=== PATIENT | female | born 1965 | race Caucasian/White ===

== ENCOUNTER 2021-12-20 15:32 | Emergency (ER) | payer BC ==
--- OUTSIDE RECORDS SUMMARY | 2021-12-20 15:48 | XMS REPORT | Continuity of Care Document ---
:1965 Author Organization [facility] t Address [address] [place] [address] Dr. Nur [address] [place] [id number] Care Team Providers Name Role Phone Unavailable Unavailable Unavailable Problems This patient has no known problems. Allergies, Adverse Reactions, Alerts This patient has no known allergies or adverse reactions. Medications This patient has no known medications. Procedures This patient has no known procedures. Results Test Description Test Time Test Comments Results Result [facility] e Comments SCR MAMM BILATERAL 2021-12-05 NIKKIE CAD DIGITAL 08:22:16 Name: Veena : 1965 Sex: F - SCR MAMM BILATERAL NIKKIE CAD DIGITALBILATERAL DIGITAL SCREENING MAMMOGRAM 3D/2D WITH CAD: 11/15/2021LINICAL: Asymptomatic. Digital breast tomosynthesis was performed in addition to routine CC and MLO views. Current mammographic images were evaluated by Digital Reef ImageAPX Grouper CAD (computer-aided detection) software. No prior exams were available for comparison. There are scattered fibroglandular tissues in both breasts. There is a benign appearing density in both breasts. No suspicious mass, architectural distortion, malignant type calcification, or lymph node abnormality detected. IMPRESSION: BENIGNThere is no mammographic evidence of malignancy. Resume annual screening mammography in one year. Anabel matute/castillo:12/05/2021 08:22:16 Dialysis Biomed Technician: Shakila Canseco MM, [facility] sent: BIRADS 1-2 Normal Mammogram BI-RADS: 2 Benign
[2021-12-20 16:32] LABS: Absolute Lymphocytes (CBC) 1.6 K/uL (0.7-4.9); Hematocrit 39.5 % (36.0-45.0); Lymphocytes % 23.6 % (15.3-44.8); MPV 9.4 fL (7.6-11.3); RBC Red Blood Cell Count 4.26 M/uL (3.86-4.86)
[2021-12-20 16:33] LABS: Protime INR 1.08
[2021-12-20 16:48] LABS: ALT/SGPT 18 U/L (12-78); AST/SGOT 12 U/L (15-37); Albumin 3.4 g/dL (3.4-5.0); BUN Blood Urea Nitrogen 16 mg/dL (7-18); Bicarbonate 28 mmol/L (21-32); Bilirubin Direct < 0.1 mg/dL (0-0.2); Glucose Level 94 mg/dL (74-106); Magnesium 1.9 mg/dL (1.8-2.4); Potassium 3.8 mmol/L (3.5-5.1); Sodium Level 139 mmol/L (136-145)
[2021-12-20 16:55] LABS: Alkaline Phosphatase 68 U/L (45-117); Bilirubin Total 0.3 mg/dL (0.2-1.0); NT PRO-BNP 554 pg/mL (<125); Protein, Total 7.3 g/dL (6.4-8.2)
--- NOTE | 2021-12-20 17:47 | RAD REPORT ---
EXAM DESCRIPTION: CTHead angio12/20/2021 5:21 pm CLINICAL HISTORY: Headache COMPARISON: None TECHNIQUE: CT angiogram of the head was obtained. 3D MIPS reconstruction performed. All CT scans are performed using dose optimization technique as appropriate and may include automated exposure control or mA/KV adjustment according to patient size. FINDINGS: The basilar, internal carotid, anterior cerebral, middle cerebral and posterior cerebral a rteries are normal caliber. An aneurysm is not seen. The vein of Vasiliy is ectatic measuring 5 millimeters in width A significant stenosis is not noted. IMPRESSION: Unremarkable CT arteriogram head. Ectatic vein of Vasiliy
--- NOTE | 2021-12-20 17:50 | RAD REPORT ---
EXAM DESCRIPTION: CT - Head Brain Wo Cont - 12/20/2021 5:21 pm CLINICAL HISTORY: Headache COMPARISON: None. TECHNIQUE: Computed axial tomography of the head was obtained. IV contrast was not requested. All CT scans are performed using dose optimization technique as appropriate and may include automated exposure control or mA/KV adjustment according to patient size. FINDINGS: An intracranial bleed is not seen . The ventricles are normal in caliber. No extra-axial fluid collection is noted. Empty sella turcica Fluid within the sinuses/ mastoids is not seen. IMPRESSION: No acute intracranial abnormality is seen. If patient's symptoms persist MRI of the bra in would be recommended.
--- NOTE | 2021-12-20 18:55 | RAD REPORT ---
EXAM DESCRIPTION: USExtremity Venous Uni Ltd12/20/2021 6:40 pm CLINICAL HISTORY: Right leg pain COMPARISON: None. FINDINGS: Right common femoral, superficial femoral, popliteal and right posterior tibial veins are compressible and demonstrate augmentation. Doppler demonstrates good flow. The right popliteal venous thrombosis appears resolved Grayscale, color and spectral analysis performed on all vessels IMPRESSION: No evidence of deep venous thrombosis involving the right lower extremity.
--- NOTE | 2021-12-20 19:04 | RAD REPORT ---
EXAM DESCRIPTION: US - Lower Extremity Artery Uni Ltd - 12/20/2021 6:40 pm CLINICAL HISTORY: Leg pain COMPARISON: None FINDINGS: The right common femoral, superficial femoral, popliteal and dorsalis pedis arteries demonstrate trip hasic waveforms The right posterior tibial artery demonstrate monophasic waveform Grayscale, color and spectral analysis performed on all vessels IMPRESSION: Mild distal lower extremity arterial disease
--- NOTE | 2021-12-20 19:07 | ER ---
Nurse's Notes [facility] Name: Hina Lo Age: 56 yrs Sex: Female : 1965 Arrival Date: 12/20/2021 Time: 15:35 Bed 16 Private MD: Diagnosis: Essential (primary) hypertension;Headache Presentation: 12/20 15:56 Chief complaint: Patient states: she was at the dr. office when her blood pressure read ap3 210/119 and she was informed by the office to come be evaluated here. Patient reports having a left sided headache at this time. Coronavirus screen: At this time, the client does not indicate any symptoms associated with coronavirus-19. Ebola Screen: No symptoms or risks identified at this time. Initial Sepsis Screen:. Initial Sepsis Screen: Does the patient meet any 2 criteria? No. Patient's initial sepsis screen is negative. Does the patient have a suspected source of infection? No. Patient's initial sepsis screen is negative. Risk Assessment: Do you want to hurt yourself or someone else? Patient reports no desire to harm self or others. Onset of symptoms was December 20, 2021. 15:56 Method Of Arrival: Ambulatory ap3 15:56 Acuity: ROSI 2 ap3 Triage Assessment: 16:02 General: Appears in no apparent distress. Behavior is calm, cooperative, appropriate ap3 for age. Pain: Complains of pain in left side of head. Neuro: Level of Consciousness is awake, alert, obeys commands, Oriented to person, place, time, situation, Appropriate for age Speech is normal. Cardiovascular: Patient's skin is warm and dry. Respiratory: Airway is patent Respiratory effort is even, unlabored, Respiratory pattern is regular, symmetrical. 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 Pneumococcal vaccine is up to date, Flu vaccine is up to date. - Social history:: Smoking status: Patient denies any tobacco usage or history of. Screenin:03 Abuse screen: Denies threats or abuse. Nutritional screening: No deficits noted. ap3 Tuberculosis screening: No symptoms or risk factors identified. 16:47 Fall Risk None identified. ww Assessment: 16:47 General: Appears in no apparent distress. Behavior is calm, cooperative. Pain: ww Complains of pain in forehead. Neuro: Level of Consciousness is awake, alert, obeys commands, Oriented to person, place, time, situation, Gait is steady, Speech is normal, Reports headache. Cardiovascular: Capillary refill < 3 seconds Patient's skin is warm and dry. Respiratory: Airway is patent Respiratory effort is even, unlabored, Respiratory pattern is regular, symmetrical. GI: No signs and/or symptoms were reported involving the gastrointestinal system. : No signs and/or symptoms were reported regarding the genitourinary system. Derm: No signs and/or symptoms reported regarding the dermatologic system. Skin is intact, is healthy with good turgor. Musculoskeletal: No signs and/or symptoms reported regarding the musculoskeletal system. 17:54 Reassessment: Patient appears in no apparent distress at this time. No changes from ww previously documented assessment. Patient and/or family updated on plan of care and expected duration. Pain level reassessed. Patient is alert, oriented x 3, equal unlabored respirations, skin warm/dry/pink. 18:33 Reassessment: Patient appears in no apparent distress at this time. No changes from ww previously documented assessment. Patient and/or family updated on plan of care and expected duration. Pain level reassessed. Patient is alert, oriented x 3, equal unlabored respirations, skin warm/dry/pink. assisted to bathroom. 19:10 Reassessment: No changes from previously documented assessment. The pt has been dc'd joanna home and the provider has just spoken with her about her appt tomorrow. The pt remains in NAD. . Vital Signs: 15:56 BP 191 / 101; Pulse 68; Resp 17; Temp 98.2; Pulse Ox 99% ; Weight 151.05 kg; Height 5 ap3 ft. 11 in. (180.34 cm); 16:47 BP 152 / 67; Pulse 65; Resp 18; Pulse Ox 97% on R/A; ww 17:15 BP 153 / 75; Pulse 55; Resp 16; Pulse Ox 96% on R/A; ww 18:47 BP 177 / 74; Pulse 54; Resp 18; Pulse Ox 98% on R/A; ww 19:11 BP 158 / 80; Pulse 58; Resp 16; Pulse Ox 98% on R/A; joanna 15:56 Body Mass Index 46.44 (151.05 kg, 180.34 cm) ap3 ED Course: 15:35 Patient arrived in ED. ds1 15:58 Triage completed. ap3 16:03 Arm band placed on right wrist. ap3 16:05 Sherri Faith FNP-C is [facility]. kb 16:05 Brian Lazaro MD is Attending Physician. kb 16:24 Kelle Hagen, RN is Primary Nurse. ww 16:42 Basic Metabolic Panel Sent. ww 16:42 CBC with Diff Sent. ww 16:47 Patient has correct armband on for positive identification. Placed in gown. Bed in low ww position. Call light in reach. Side rails up X 1. diagrammer and seamer on. Pulse ox on. NIBP on. 17:21 CT Head Brain wo Cont In Process Unspecified. EDMS 17:21 CT Head Angio In Process Unspecified. EDMS 18:40 Extremity Venous Uni Ltd In Process Unspecified. EDMS 18:40 US Lower Extremity Artery Uni Ltd In Process Unspecified. EDMS 19:03 Primary Nurse role handed off by Kelle Hagen RN mw2 19:10 Tierra Ware, RN is Primary Nurse. joanna 19:11 No provider procedures requiring assistance completed. joanna Administered Medications: No medications were administered Outcome: 19:06 Discharge ordered by . kb 19:11 Condition: stable joanna 19:47 Patient left the ED. joanna Signatures: Dispatcher [employer] EDMS Sherri Faith FNP-C FNP-Ckb Sanford, Demi ds1 Selma Bran, RN RN ap3 Indra Heart mw2 Tierra Ware RN RN bo Wood, Whitney, YOVANI jaquez
--- NOTE | 2021-12-20 19:07 | EDPHYS ---
Physician Documentation [facility] Name: Hina Lo Age: 56 yrs Sex: Female : 1965 Arrival Date: 12/20/2021 Time: 15:35 Bed 16 Private MD: ED Physician Brian Lazaro HPI: 12/20 16:16 This 56 yrs old Female presents to ER via Ambulatory with complaints of HTN, headache. kb 16:16 The patient has elevated blood pressure and discovered this at a physician's office, ami and sent to the emergency department for evaluation. Onset: The symptoms/episode began/occurred today. Associated signs and symptoms: Pertinent positives: headache, Pertinent negatives: chest pain, dizziness, dyspnea, lightheadedness, nausea, visual changes, vomiting, weakness. Severity of symptoms: At its worst the blood pressure was moderate, in the emergency department the blood pressure is unchanged. The patient has experienced similar episodes in the past. The patient has been recently seen by a physician:. Pt states she went to her appt with her pain management dr and was sent here because her BP was high. States she is on 4 different hypertensive medications already. Reports headache on left side of head. States she has had a blood clot in right leg since August that causes pain.. 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 Pneumococcal vaccine is up to date, Flu vaccine is up to date. - Social history:: Smoking status: Patient denies any tobacco usage or history of. ROS: 16:15 Constitutional: Negative for fever, chills, and weight loss. kb 16:15 MS/extremity: Positive for pain, of the right leg. 16:15 Neuro: Positive for headache, Negative for dizziness. 16:15 All other systems are negative. Exam: 16:15 Constitutional: This is a well developed, well nourished patient who is awake, alert, kb and in no acute distress. Head/Face: Normocephalic, atraumatic. ENT: Moist Mucous membranes Cardiovascular: Regular rate and rhythm with a normal S1 and S2. No gallops, murmurs, or rubs. No pulse deficits. Respiratory: Respirations even and unlabored. No increased work of breathing. Talking in full sentences Skin: Warm, dry with normal turgor. Normal color. MS/ Extremity: Pulses equal, no cyanosis. Neurovascular intact. Full, normal range of motion. Neuro: Awake and alert, GCS 15, oriented to person, place, time, and situation. Moves all extremities. Normal gait. Psych: Awake, alert, with orientation to person, place and time. Behavior, mood, and affect are within normal limits. Vital Signs: 15:56 BP 191 / 101; Pulse 68; Resp 17; Temp 98.2; Pulse Ox 99% ; Weight 151.05 kg; Height 5 ap3 ft. 11 in. (180.34 cm); 16:47 BP 152 / 67; Pulse 65; Resp 18; Pulse Ox 97% on R/A; ww 17:15 BP 153 / 75; Pulse 55; Resp 16; Pulse Ox 96% on R/A; ww 18:47 BP 177 / 74; Pulse 54; Resp 18; Pulse Ox 98% on R/A; ww 19:11 BP 158 / 80; Pulse 58; Resp 16; Pulse Ox 98% on R/A; joanna 15:56 Body Mass Index 46.44 (151.05 kg, 180.34 cm) ap3 MDM: 16:06 Patient medically screened. kb 16:14 Data reviewed: vital signs, nurses notes. Data interpreted: Pulse oximetry: on room air kb is 99 %. Interpretation: normal. 19:06 Counseling: I had a detailed discussion with the patient and/or guardian regarding: the kb historical points, exam findings, and any diagnostic results supporting the discharge/admit diagnosis, lab results, radiology results, the need for outpatient follow up, a family practitioner, to return to the emergency department if symptoms worsen or persist or if there are any questions or concerns that arise at home. 12/20 16:14 Order name: Basic Metabolic Panel kb 12/20 16:14 Order name: CBC with Diff kb 12/20 16:14 Order name: LFT's; Complete Time: 16:58 kb 12/20 16:14 Order name: Magnesium; Complete Time: 16:58 kb 12/20 16:14 Order name: NT PRO-BNP; Complete Time: 16:58 kb 12/20 16:14 Order name: PT-INR; Complete Time: 16:40 kb 12/20 16:14 Order name: Troponin HS; Complete Time: 16:58 kb 12/20 16:14 Order name: CT Head Brain wo Cont; Complete Time: 17:54 kb 12/20 16:14 Order name: CT Head Angio; Complete Time: 17:54 kb 12/20 16:14 Order name: Basic Metabolic Panel; Complete Time: 16:58 EDMS 12/20 16:14 Order name: CBC with Automated Diff; Complete Time: 16:40 EDMS 12/20 17:43 Order name: US Extremity Venous Unilateral Ltd kb 12/20 17:43 Order name: US Lower Extremity Artery Uni Ltd; Complete Time: 19:05 kb 12/20 17:43 Order name: Extremity Venous Uni Ltd; Complete Time: 18:58 EDMS 12/20 16:14 Order name: EKG; Complete Time: 16:14 kb 12/20 16:14 Order name: Cardiac monitoring; Complete Time: 16:42 kb 12/20 16:14 Order name: EKG - Nurse/Tech; Complete Time: 16:42 kb 12/20 16:14 Order name: IV Saline Lock; Complete Time: 16:42 kb 12/20 16:14 Order name: Labs collected and sent; Complete Time: 16:42 kb 12/20 16:14 Order name: O2 Per Protocol; Complete Time: 16:42 kb 12/20 16:14 Order name: O2 Sat Monitoring; Complete Time: 16:42 kb Administered Medications: No medications were administered Disposition Summary: 12/20/21 19:06 Discharge Ordered Location: Home kb Condition: Stable kb Diagnosis - Essential (primary) hypertension kb - Headache kb Followup: kb - With: Emergency Department - When: As needed - Reason: Worsening of condition Followup: kb - With: Private Physician - When: 2 - 3 days - Reason: Recheck today's complaints, Continuance of care, Re-evaluation by your physician Discharge Instructions: - Discharge Summary Sheet kb - Hypertension, Adult, [id number] kb - Managing Your Hypertension kb Forms: - Medication Reconciliation Form kb - Thank You Letter kb - Antibiotic Education kb - Prescription Opioid Use kb Signatures: Dispatcher [employer]Host Sherri Moe, CLOTH LAMINATING SUPERVISOR-C Selma Teresa RN RN ap3 Corrections: (The following items were deleted from the chart) 16:18 16:16 This 56 yrs old Female presents to ER via Ambulatory with complaints of kb Dizziness. kb
[2021-12-20 20:47] VITALS: O2SAT 98
[2021-12-20 20:48] VITALS: BP 158/80
[2021-12-20 20:56] VITALS: TEMP 98.2
--- NOTE | 2021-12-21 11:15 | EKG ---
Test Date: 2021-12-20 Test Time: 16:08:26 Perfume Maker: ALP MEASUREMENT RESULTS: Intervals: Rate: 64 KS: 212 QRSD: 92 QT: 396 QTc: 408 [place]: P: 65 KS: 212 QRS: 56 T: 48 INTERPRETIVE STATEMENTS: Sinus rhythm with sinus arrhythmia with 1st degree AV block Otherwise normal ECG Compared to ECG 09/09/2020 12:30:57 First degree AV block now present Electronically Signed On 12-21-21 11:13:45 CLERICAL RECEPTIONIST by Royer Chong
== END 2021-12-20 19:47 | disposition home or self-care (01) ==
LOC: ER 15:32
DX: I10 Essential (primary) hypertension (principal); Z79.01 Long term (current) use of anticoagulants
CPT/HCPCS: 93005; 85025; 80048; 36415; 83735; 85610; 80076; 84484; 83880; 70450; 70496; 93926; 93971; 99284; Q9967

== ENCOUNTER 2022-02-22 09:11 | Emergency (ER) | payer BC ==
--- OUTSIDE RECORDS SUMMARY | 2022-02-22 09:13 | XMS REPORT | Continuity of Care Document ---
:1965 Author Organization [facility] t Address [address] [place] [address] Dr. Wh[address] [place] [address] Care Team Providers Name Role Phone Beckie Flores Attending Clinician Unavailable Beckie Flores Admitting Clinician Unavailable Payers Payer Name Policy Type Policy Number Effective Date Expiration Date S ource Problems This patient has no known problems. Allergies, Adverse Reactions, Alerts Allergy Allergy Status Severity Reaction(s) Onset Inactive Treating Comm ents Source Name Type Date Date Clinician No Known DA Active U [facility] Allergie 12-29 [facility] 00:00: [facility] [place] 00 [employer] [facility] Medications This patient has no known medications. Procedures Procedure Date / Time Performed Performing Clinician [facility] e [id number] 2021-12-29 00:00:00 [email or web address] [facility] [id number] 2021-12-29 00:00:00 [email or web address] [facility] Encounters Start End Encounter Admission Attending Care Care Encounter Source Date/Time Date/Time Type Type Clinicians Facility Department ID 2021-12-29 2021-12-30 Inpatient [facility] MEDI.01 [id number] [facility] 05:18:00 11:48:00 [place] [id number] [facility] 2021-12-29 2021-12-30 Inpatient [facility] MEDI.01 [id number] [facility] 05:18:00 11:48:00 Wyatt Olivia [facility] [place] Results Test Description Test Time Test Comments Results Result Comments Source BASIC METABOLIC PANEL 2021-12-29 07:31:00 Test Item Value Reference Range Interpretation Comme nts SODIUM (test code = NA) 141 mmol/L 136-145 N Plea se note: New Reference Range Dec 2020 POTASSIUM (test code = K) 4.6 mmol/L 3.5-5.1 N CHLORIDE (test code = CL) 108 mmol/L 98-[address] ease note: New Reference Range Dec 2020 CARBON DIOXIDE (test code 27 mmol/L 20-[address] Pl ease note: New Reference = CO2) Range Dec 2020 GLUCOSE (test code = GLU) 95 mg/dL 74-[address] ease note: New Reference Range Dec 2020 BLOOD UREA NITROGEN (test 16 mg/dL 9-[address] ease note: New Reference code = BUN) Range Dec 2020 GLOMERULAR FILTRATION >=60 max estimate >60 U nits are mL/min/1.73m2 RATE (test code = GFR) mL/min The e stimated glomerular filtration rate is computed usingp atient race, age (>18) , sex, and serum creatinin e. If anyof the needed data elements are missing the Laboratory cannot compute an estimation of t he glomerular filt ration rate. CREATININE (test code = 0.90 mg/dL 0.55-1.02 N Plea se note: New Reference CREAT) Range Dec 2020 CALCIUM (test code = CA) 8.6 mg/dL 8.7-10.4 L Ple ase note: New Reference Range Dec 2020 CBC W/AUTO [id number] 07:00:00 Test Item Value Reference Range Interpretation Comments WHITE BLOOD CELL (test code = 7.0 x10 3/uL 4.8-10.8 N WBC) RED BLOOD CELL (test code = 3.83 x10 6/uL 4.20-5.40 L RBC) HEMOGLOBIN (test code = HGB) 11.7 g/dL 12.0-16.0 L HEMATOCRIT (test code = HCT) 36.3 % 37.0-47.0 L MEAN CELL VOLUME (test code = 94.8 fL 81.0-99.0 N MCV) MEAN CELL HGB (test code = MCH) 30.5 pg 27-31 N MEAN CELL HGB CONCENTRATION 32.2 G/DL 33-36.5 L (test code = MCHC) RED CELL DISTRIBUTION WIDTH 13.6 % 12.9-16.9 N (test code = RDW) PLATELET COUNT (test code = 204 x10 3/uL 150-440 N PLT) MEAN PLATELET VOLUME (test code 11.1 fL 8.9-12.4 N = MPV) NEUTROPHIL % (test code = NT%) 57.5 % 42.2-75.2 N LYMPHOCYTE % (test code = LY%) 28.5 % 20.5-51.1 N MONOCYTE % (test code = MO%) 10.3 % 1.7-9.3 H EOSINOPHIL % (test code = EO%) 2.4 % 0.0-7.0 N BASOPHIL % (test code = BA%) 0.7 % 0-2.5 N NEUTROPHIL # (test code = NT#) 4.03 x10 3/uL 1.80-7.70 N LYMPHOCYTE # (test code = LY#) 2.00 x10 3/uL 1.00-4.80 N MONOCYTE # (test code = MO#) 0.72 x10 3/uL 0.00-0.80 N EOSINOPHIL # (test code = EO#) 0.17 x10 3/uL 0.00-0.45 N BASOPHIL # (test code = BA#) 0.05 x10 3/uL 0.0-0.20 N SCR MAMM BILATERAL NIKKIE CAD [id number] 08:22:16 Name: Veena : 1965 Sex: F - SCR MAMM BILATERAL NIKKIE CAD DIGITALBILATERAL DIGITAL SCREENING MAMMOGRAM 3D/2D WITH CAD: 11/15/2021LINICAL: Asymptomatic. Digital breast tomosynthesis was performed in addition to routine CC and MLO views. Current mammographicimages were evaluated by vIPtela CAD (computer-aided detection) software. No prior exams were available for comparison. There are scattered fibroglandular tissues in both breasts. Thereis a benign appearing density in both breasts. No suspicious mass, architectural distortion, malignant type calcification, or lymph node abnormality detected. IMPRESSION: BENIGNThere is no mammographic evidence of malignancy. Resume annual screening mammography in one year. Anabel matute/penrad:12/05/2021 08:22:16 Marine Superintendent: Shakila Canseco MM, [facility] sent: BIRADS 1-2 Normal Mammogram BI-RADS: 2 Benign
[2022-02-22] MEDS ORDERED: NA CHLORIDE 0.9% 500 ML ONE (10:30)
--- NOTE | 2022-02-22 10:47 | RAD REPORT ---
EXAM DESCRIPTION: US - Extrem Venous W Compress Agusto - 02/22/2022 10:30 am CLINICAL HISTORY: Pain COMPARISON: Extremity Venous Uni Ltd dated 12/20/2021 TECHNIQUE: Real-time sonographic evaluation of the lower extremity deep venous systems was performed using color Doppler, grayscale, and compression. FINDINGS: Bilateral lower extremities. Normal compressibility, flow augmentation, phasic flow and spontaneous flow is identified in both the left and right lower extremity deep venous systems. No intraluminal filling defects seen. IMPRESSION: No DVT in either lower extremity.
[2022-02-22 11:00] LABS: Absolute Lymphocytes (CBC) 1.4 K/uL (0.7-4.9); Hematocrit 38.3 % (36.0-45.0); Lymphocytes % 19.2 % (15.3-44.8); MPV 10.7 fL (7.6-11.3); RBC Red Blood Cell Count 4.12 M/uL (3.86-4.86)
[2022-02-22 11:01] LABS: Protime INR 1.08
[2022-02-22] MEDS ORDERED: ASPIRIN EC 81 MG TAB PO ONE (11:05)
[2022-02-22 11:15] LABS: Albumin 3.7 g/dL (3.4-5.0); Bilirubin Direct 0.1 mg/dL (0-0.2); Bilirubin Total 0.4 mg/dL (0.2-1.0); Magnesium 1.8 mg/dL (1.8-2.4); Potassium 3.6 mmol/L (3.5-5.1); Protein, Total 7.7 g/dL (6.4-8.2); Troponin High Sensitivity 4.5 pg/mL (<58.9)
--- NOTE | 2022-02-22 11:19 | EDPHYS ---
Physician Documentation [facility] Name: Hina Lo Age: 57 yrs Sex: Female : 1965 Arrival Date: 02/22/2022 Time: 09:12 Bed 4 Private MD: Victor Hugo [facility] ED Physician Tigre Laws HPI: 02/22 10:52 This 57 yrs old Female presents to ER via Ambulatory with complaints of Leg katheryn Swelling, Leg Pain - right. 10:52 The patient presents with pain, that is acute. The complaints affect the lateral aspect katheryn of right thigh, lateral aspect of right calf, right hamstring, right calf, medial aspect of right thigh, right quadriceps and right jackson. Context: The problem was sustained at an unknown site. Onset: The symptoms/episode began/occurred 2 day(s) ago. Modifying factors: The symptoms are alleviated by nothing. the symptoms are aggravated by nothing. Associated signs and symptoms: The patient has no apparent associated signs or symptoms. Treatment prior to arrival includes: no previous treatment. The patient has experienced similar episodes in the past, a few times. 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 - Social history:: Smoking status: Patient denies any tobacco usage or history of. - Family history:: not pertinent. ROS: 10:52 Constitutional: Negative for fever, chills, and weight loss, Eyes: Negative for injury, katheryn pain, redness, and discharge, ENT: Negative for injury, pain, and discharge, Neck: Negative for injury, pain, and swelling, Cardiovascular: Negative for chest pain, palpitations, and edema, Respiratory: Negative for shortness of breath, cough, wheezing, and pleuritic chest pain, Abdomen/GI: Negative for abdominal pain, nausea, vomiting, diarrhea, and constipation, Back: Negative for injury and pain, : Negative for injury, bleeding, discharge, and swelling, Skin: Negative for injury, rash, and discoloration, Neuro: Negative for headache, weakness, numbness, tingling, and seizure, Psych: Negative for depression, anxiety, suicide ideation, homicidal ideation, and hallucinations, Allergy/Immunology: Negative for hives, rash, and allergies, Endocrine: Negative for neck swelling, polydipsia, polyuria, polyphagia, and marked weight changes, Hematologic/Lymphatic: Negative for swollen nodes, abnormal bleeding, and unusual bruising. 10:52 MS/extremity: Positive for decreased range of motion, pain, tenderness, of the right leg. Exam: 10:52 Constitutional: This is a well developed, well nourished patient who is awake, alert, katheryn and in no acute distress. Head/Face: Normocephalic, atraumatic. Eyes: Pupils equal round and reactive to light, extra-ocular motions intact. Lids and lashes normal. Conjunctiva and sclera are non-icteric and not injected. Cornea within normal limits. Periorbital areas with no swelling, redness, or edema. ENT: Nares patent. No nasal discharge, no septal abnormalities noted. Tympanic membranes are normal and external auditory canals are clear. Oropharynx with no redness, swelling, or masses, exudates, or evidence of obstruction, uvula midline. Mucous membranes moist. Neck: Trachea midline, no thyromegaly or masses palpated, and no cervical lymphadenopathy. Supple, full range of motion without nuchal rigidity, or vertebral point tenderness. No Meningismus. Chest/axilla: Normal chest wall appearance and motion. Nontender with no deformity. No lesions are appreciated. Cardiovascular: Regular rate and rhythm with a normal S1 and S2. No gallops, murmurs, or rubs. Normal PMI, no JVD. No pulse deficits. Respiratory: Lungs have equal breath sounds bilaterally, clear to auscultation and percussion. No rales, rhonchi or wheezes noted. No increased work of breathing, no retractions or nasal flaring. Abdomen/GI: Soft, non-tender, with normal bowel sounds. No distension or tympany. No guarding or rebound. No evidence of tenderness throughout. Back: No spinal tenderness. No costovertebral tenderness. Full range of motion. Skin: Warm, dry with normal turgor. Normal color with no rashes, no lesions, and no evidence of cellulitis. Neuro: Awake and alert, GCS 15, oriented to person, place, time, and situation. Cranial nerves II-XII grossly intact. Motor strength 5/5 in all extremities. Sensory grossly intact. Cerebellar exam normal. Normal gait. Psych: Awake, alert, with orientation to person, place and time. Behavior, mood, and affect are within normal limits. 10:52 Musculoskeletal/extremity: Extremities: grossly normal except: decreased ROM, ROM: full active range of motion, full passive range of motion, Circulation is intact in all extremities. Sensation intact. Compartment Syndrome exam of affected extremity: is normal. DVT Exam: no swelling, no tenderness, negative Homans' sign noted on exam, no appreciated bluish discoloration, no erythema, no increased warmth, pain. 10:59 ECG was reviewed by the Attending Physician. [facility] Vital Signs: 09:35 BP 157 / 94; Pulse 72; Resp 16; Temp 98.9; Pulse Ox 99% ; Weight 130.63 kg; Height 5 vg1 ft. 11 in. (180.34 cm); Pain 8/10; 11:51 BP 134 / 76; Pulse 66; Resp 16; Temp 97.6(TE); Pulse Ox 100% on R/A; Pain 0/10; dw3 09:35 Body Mass Index 40.17 (130.63 kg, 180.34 cm) vg1 11:51 pt reports that the pain in her right leg is felt when she walks. pain is rated at dw3 8/10. when the patient is sitting still pain in not felt. MDM: 09:47 Patient medically screened. [facility] 10:58 Differential diagnosis: contusion, abrasion, tendonitis. Data reviewed: vital signs, [facility] nurses notes, lab test result(s), EKG, radiologic studies, doppler, plain films. 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 Test interpretation: by ED physician or midlevel provider: ECG, plain radiologic studies. Counseling: I had a detailed discussion with the patient and/or guardian regarding: the historical points, exam findings, and any diagnostic results supporting the discharge/admit diagnosis, lab results. 02/22 09:33 Order name: Basic Metabolic Panel; Complete Time: 11:18 [facility] 02/22 09:33 Order name: CBC with Diff; Complete Time: 11:18 [facility] 02/22 09:33 Order name: LFT's; Complete Time: 11:18 [facility] 02/22 09:33 Order name: Magnesium; Complete Time: 11:18 [facility] 02/22 09:33 Order name: NT PRO-BNP; Complete Time: 11:18 [facility] 02/22 09:33 Order name: PT-INR; Complete Time: 11:18 [facility] 02/22 09:33 Order name: Troponin HS; Complete Time: 11:18 [facility] 02/22 09:33 Order name: XRAY Chest (1 view) [facility] 02/22 09:33 Order name: EKG; Complete Time: 09:33 [facility] 02/22 09:33 Order name: Cardiac monitoring; Complete Time: 10:53 [facility] 02/22 09:33 Order name: EKG - Nurse/Tech; Complete Time: 10:53 [facility] 02/22 09:33 Order name: US Extremity Venous W Compression Agusto; Complete Time: 10:49 [facility] 02/22 09:33 Order name: IV Saline Lock; Complete Time: 10:54 [facility] 02/22 09:33 Order name: Labs collected and sent; Complete Time: 10:54 [facility] 02/22 09:33 Order name: O2 Per Protocol; Complete Time: 10:53 [facility] 02/22 09:33 Order name: O2 Sat Monitoring; Complete Time: 10:53 [facility] EC:59 Rate is 61 beats/min. Rhythm is regular. QRS [place] is Normal. NC interval is normal. QRS katheryn interval is normal. QT interval is normal. No Q waves. T waves are Normal. No ST changes noted. Clinical impression: Normal ECG and No evidence of ischemia. Interpreted by me. Reviewed by me. Administered Medications: 10:42 Drug: NS 0.9% 500 ml Route: IV; Rate: bolus; Site: right antecubital; dw3 12:44 Follow up: IV Status: Completed infusion ap3 11:07 Drug: Aspirin 81 mg Route: PO; dw3 12:44 Follow up: Response: No adverse reaction ap3 Disposition Summary: 02/22/22 11:18 Discharge Ordered Location: Home katheryn Problem: new katheryn Symptoms: have improved katheryn Condition: Stable katheryn Diagnosis - Pain in right leg katheryn - Essential (primary) hypertension katheryn - Obesity, unspecified katheryn Followup: katheryn - With: - When: 2 - 3 days - Reason: Recheck today's complaints, Continuance of care, Re-evaluation by your physician Discharge Instructions: - Discharge Summary Sheet katheryn - Hypertension, Adult katheryn - Musculoskeletal Pain katheryn - Obesity, Adult katheryn - Hypertension, Adult, [id number] katheryn - How to Take Your Blood Pressure, [id number] katheryn - Aspirin and Your Heart katheryn - Managing Your Hypertension katheryn Forms: - Medication Reconciliation Form katheryn - Thank You Letter katheryn - Antibiotic Education katheryn - Prescription Opioid Use katheryn Signatures: Dispatcher [employer] EDTigre Urbano MD MD cha Garcia, Victoria RN RN vg1 Laina Cannon RN RN dw3 Selma Bran RN ap3
--- NOTE | 2022-02-22 11:19 | ER ---
Nurse's Notes [facility] Name: Hina Lo Age: 57 yrs Sex: Female : 1965 Arrival Date: 02/22/2022 Time: 09:12 Bed 4 Private MD: Juan Gay Diagnosis: Pain in right leg;Essential (primary) hypertension;Obesity, unspecified Presentation: 02/22 09:35 Chief complaint: Patient states: "Dr Purvis has taken me off my blood thinners for three vg1 weeks already, my Left leg is swollen and I have a hx of the DVT in my Right leg but my Right leg is the only one that hurts right now; I also had gastric sleeve surgery on 12/29/21 and I ended up having superficial blood clots to both my arms due to the IV and blood pressure cuff". Coronavirus screen: Vaccine status: Patient reports being unvaccinated. Client denies travel out of the [place] in the last 14 days. Ebola Screen: Patient negative for fever greater than or equal to 101.5 degrees Fahrenheit, and additional compatible Ebola Virus Disease symptoms. Initial Sepsis Screen: Does the patient meet any 2 criteria? No. Patient's initial sepsis screen is negative. Does the patient have a suspected source of infection? No. Patient's initial sepsis screen is negative. Risk Assessment: Do you want to hurt yourself or someone else? Patient reports no desire to harm self or others. Onset of symptoms was February 19, 2022. 09:35 Method Of Arrival: Ambulatory vg1 09:35 Acuity: ROSI 3 vg1 Triage Assessment: 09:39 General: Appears in no apparent distress. uncomfortable, Behavior is calm, cooperative. vg1 Pain: Complains of pain in right leg Pain currently is 8 out of 10 on a pain scale. Musculoskeletal: Circulation, motion, and sensation intact. Swelling present in left leg. 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 - Social history:: Smoking status: Patient denies any tobacco usage or history of. - Family history:: not pertinent. Assessment: 09:25 General: Appears comfortable, Behavior is calm, cooperative, quiet. Pain: Complains of dw3 pain in right jackson and anterior aspect of right ankle. Neuro: Level of Consciousness is awake, alert, obeys commands, Oriented to person, place, time, situation. Cardiovascular: Heart tones S1 S2 present. Respiratory: Breath sounds are clear bilaterally. GI: Bowel sounds present X 4 quads. : No signs and/or symptoms were reported regarding the genitourinary system. EENT: No signs and/or symptoms were reported regarding the EENT system. Derm: Skin is healthy with good turgor, Skin is pink, warm \\T\\ dry. Musculoskeletal: Capillary refill < 3 seconds. Vital Signs: 09:35 BP 157 / 94; Pulse 72; Resp 16; Temp 98.9; Pulse Ox 99% ; Weight 130.63 kg; Height 5 vg1 ft. 11 in. (180.34 cm); Pain 8/10; 11:51 BP 134 / 76; Pulse 66; Resp 16; Temp 97.6(TE); Pulse Ox 100% on R/A; Pain 0/10; dw3 09:35 Body Mass Index 40.17 (130.63 kg, 180.34 cm) vg1 11:51 pt reports that the pain in her right leg is felt when she walks. pain is rated at dw3 8/10. when the patient is sitting still pain in not felt. ED Course: 09:12 Patient arrived in ED. am2 09:12 Juan Gay DO is Private Physician. am2 09:32 Tigre Laws MD is Attending Physician. katheryn 09:38 Triage completed. vg1 09:39 Arm band placed on. vg1 10:17 Laina Cannon, YOVAIN is Primary Nurse. dw3 10:32 US Extremity Venous W Compression Agusto In Process Unspecified. EDMS 10:40 Initial lab(s) drawn, by me, sent to lab. Inserted saline lock: 20 gauge in right 3 antecubital area, using aseptic technique. Blood collected. 10:50 EKG done, by ED staff, reviewed by Tigre Laws MD. 3 11:18 Juan Gay DO is Referral Physician. [facility] 11:35 XRAY Chest (1 view) In Process Unspecified. EDMS 12:43 No provider procedures requiring assistance completed. IV discontinued, intact, ap3 bleeding controlled, No redness/swelling at site. Pressure dressing applied. Administered Medications: 10:42 Drug: NS 0.9% 500 ml Route: IV; Rate: bolus; Site: right antecubital; dw3 12:44 Follow up: IV Status: Completed infusion ap3 11:07 Drug: Aspirin 81 mg Route: PO; dw3 12:44 Follow up: Response: No adverse reaction ap3 Outcome: 11:18 Discharge ordered by . [facility] 12:43 Discharged to home ambulatory. ap3 12:43 Condition: good 12:43 Discharge instructions given to patient, Instructed on discharge instructions, follow up and referral plans. Demonstrated understanding of instructions, follow-up care. 12:44 Patient left the ED. ap3 Signatures: Dispatcher [employer] EDLA Tigre Laws MD MD cha Moreno, Amanda am2 Herrera, Deanna 3 Selma Bran RN RN ap3 Babs Love, RN RN 1 Laina Cannon, RN RN dw3
--- NOTE | 2022-02-22 11:47 | RAD REPORT ---
EXAM DESCRIPTION: RAD - Chest Single View - 02/22/2022 11:33 am CLINICAL HISTORY: COUGH COMPARISON: No comparisons FINDINGS: Lines: None. Lungs: No evidence of edema or pneumonia. Pleural: No significant pleural effusions or pneumothorax. Cardiac: Mild cardiomegaly Bones: No acute fractures. Other: IMPRESSION: No acute cardiopulmonary disease.
[2022-02-22 16:21] VITALS: BP 134/76; TEMP 97.6; O2SAT 100
== END 2022-02-22 12:44 | disposition home or self-care (01) ==
LOC: ER 09:11
DX: M79.604 Pain in right leg (principal); I10 Essential (primary) hypertension; E66.9 Obesity, unspecified; Z86.718 Personal history of other venous thrombosis and embolism
CPT/HCPCS: 96361; 93005; 85025; 80048; 36415; 83735; 85610; 80076; 84484; 83880; 71045; 93970; 96360; 99284; J7040

== ENCOUNTER 2023-08-09 12:40 | Emergency (ER) | payer OTHER ==
--- OUTSIDE RECORDS SUMMARY | 2023-08-09 12:44 | XMS REPORT | Continuity of Care Document ---
:1965 Author Organization [facility] t Address [address] [facility] [address] [place] [address] Care Team Providers Name Role Phone Juan aGy DO Primary Care Physician [phone] Amelia Davis Attending Clinician Unavailable Victor Hugo MONROE, Juan Pires Attending Clinician Donna MONROE, Garland Roy Attending Clinician Salazar POWELL, Luisa Calderón Attending Clinician [phone] Renato Castillo MD Attending Clinician Faiza Kaur MA Attending Clinician Unavailable GARLAND THOMPSON Admitting Clinician Unavailable Payers Payer Name Policy Type Policy Number Effective Date Expiration Date S ource Problems Condition Condition Condition Status Onset Resolution Last Treating Co mments Source Name Details Category Date Date Treatment Clinician Date S/P total S/P total Disease Active 2021-11 [facility] right hip right hip 2-06 st arthroplas arthroplas 00:00: Ho spita ty ty 00 l 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 Added automatic ally from request for surgery [id number] Allergies, Adverse Reactions, Alerts This patient has no known allergies or adverse reactions. Family History Family Member Diagnosis Comments Start Date Stop Date Source Natural father Hypertension [facility] Natural mother Diabetes [facility] Natural mother Hypertension [facility] Social History Social Habit Start Date Stop Date Quantity Comments Source Sexual orientation 2022-05-12 Heterosexual Meth odist 10:16:22 (finding) Hospital Alcohol intake 2023-01-17 2023-01-17 Current drinker of [facility] 00:00:00 00:00:00 alcohol (finding) Hospita l History of Social 2023-01-17 2023-01-[address] function 00:00:00 00:00:00 Hospital Alcohol Comment 2022-09-27 2022-09-27 seldom [facility] 00:00:00 00:00:00 Hospital Tobacco use and 2022-05-12 2022-05-12 Smokeless tobacco [facility] exposure 00:00:00 00:00:00 non-user Hospital Sex Assigned At [birth year] F [facility] 00:00:00 00:00:00 Hospital Smoking Status Start Date Stop Date Source Never smoked tobacco [facility] Medications Ordered Filled Start Stop Current Ordering Indication Dosage Frequency Signature Comments Components Source Medication Medication Date Date Medication? Clinician (SIG) Name Name amoxicillin 2022- No Take 4 Met hodi (AMOXIL) 04-27-[address] 500 MG 00:00: 04:59 one hour Hospit a capsule 00 :00 prior to l dental procedure. Please repeat if needed. fluconazole 2022- No 150mg Take 1 Me [facility] (Diflucan) 04-27-[address] 150 MG 00:00: 04:59 (150 mg Hospita tablet 00 :00 total) by l mouth once for 1 dose. methocarbam Yes 1 tablet [facility] oL 3-[address] (ROBAXIN) 07:46: Hospita 750 MG 17 l tablet HYDROcodone Yes 1 tablet [facility] -acetaminop 3-[address] hen (NORCO) 07:46: Orally Hosp altagracia 7.5-325 mg 17 every 6 l per tablet hrs fluconazole 2022- No 150mg Take 1 [facility] (Diflucan) 3-15 -[address] 150 MG 00:00: 04:59 (150 mg Hospita tablet 00 :00 total) by l mouth once for 1 dose. doxycycline 2022- No 100mg Q.5D Take 1 [facility] (VIBRAMYCIN 01-[address] ) 100 MG 00:00: 04:59 (100 mg Hospi ta capsule 00 :00 total) by l mouth 2 (two) times a day for 14 days. cephalexin Yes 500mg 1 capsule M ethodi (KEFLEX) 3-06 ([address] 500 MG 00:00: total). Hospita capsule 00 l hydroCHLORO Yes 1 tablet [facility] thiazide 2-[address] (HYDRODIURI 13:17: morning Hos mary anne L) 25 MG 09 Orally l tablet Once a day for 90 days losartan Yes 1 tablet Metho di (COZAAR) 2-[address] 100 MG 13:17: Once a day Hospi ta tablet 09 for 90 l days metoprolol Yes 1 tablet Met [facility] succinate 2-[address] XL 13:17: Once a day Hospita (TOPROL-XL) 09 for 90 l 100 mg 24 days hr tablet clonIDINE Yes .1mg 1 tablet Meth jeff (CATAPRES) 2- (0.[address] 0.1 MG 13:17: total). Hospita tablet 09 l traMADoL 2022- [place] [id number] 50mg Q8H Take 1 Metho di (ULTRAM) 50 2- 03-10 tablet (50 s t mg tablet 00:00: 05:59 mg total) Ho spita 00 :00 by mouth l every 8 (eight) hours as needed for severe pain for up to 10 days .acute pain. fluconazole 2021-11- No 150mg Take 1 Me th[facility] (Diflucan) 12-24 12-[address] 150 MG 00:00: 05:59 (150 mg Hospita tablet 00 :00 total) by l mouth once for 1 dose. Repeat in 72 hours if symptoms do not get better fluconazole 2021-11 No 150mg Take 1 Me [facility] (Diflucan) 12-14 12-[address] 150 MG 00:00: 05:59 (150 mg Hospita tablet 00 :00 total) by l mouth once for 1 dose. baclofen 2021-11- No 10mg Q.5D Take 10 mg Me th[facility] (LIORESAL) 12-12 12-[address] 20 MG 10:41: 00:00 (two) Hospita tablet 26 :00 times a l day. oxyCODone-a 2021-11 oxycodone- Methodi cetaminophe 12-12 acetaminop s t n 10:41: 00:00 hen 10 Hospita (PERCOCET) 26 :00 mg-325 mg l 10-325 mg tablet per tablet apixaban 2021-11 [place] [id number] 2.5mg Q.5D Take 1 Meth jeff (ELIQUIS) 12-[address] 2.5 mg 00:00: 05:59 (2.5 mg Hospita tablet 00 :00 total) by l mouth 2 (two) times a day for 30 days .deep vein thrombosis prevention in hip surgery. methocarbam 2021-11 No 500mg Q8H Take 1 Me thodi oL 12-[address] (ROBAXIN) 00:00: 05:59 (500 mg Hosp altagracia 500 MG 00 :00 total) by l tablet mouth every 8 (eight) hours as needed for muscle spasms for up to 30 days. sennosides- 2021-11 No 2{tbl} Q.5D Take 2 M ethodi docusate 12-[address] sodium 00:00: 05:59 mouth 2 Hospita (Senna with 00 :00 (two) l Docusate times a Sodium) day for 30 8.6-50 mg days. Hold per tablet for loose stools or diarrhea HYDROcodone 2021-11 [place] [id number] 1{tbl} Q6H Take 1 Methodi -acetaminop 12-[address] hen (NORCO) 00:00: 05:59 mouth Hosp altagracia 10-325 mg 00 :00 every 6 l per tablet (six) hours as needed for severe pain for up to 7 days .acute pain. Max Daily Amount: 4 tablets cefadroxil 2021-11 No 500mg Q.5D Take 1 Met hodi (DURICEF) 12-[address] 500 MG 00:00: 05:59 (500 mg Hospita capsule 00 :00 total) by l mouth 2 (two) times a day for 7 days. clonIDINE 2021-11 No 1 tablet Met hodi (CATAPRES) 11-[address] 0.1 MG 12:39: 00:00 Once a day Hosp altagracia tablet 51 :00 for 90 l days Vital Signs Vital Name Observation Time Observation Value Comments Source Body height 2023-01-17 12:45:[address] [facility] Body weight 2023-01-17 12:45:[address] [facility] BMI 2023-01-17 12:45:00 32.64 kg/m2 [facility] Respiratory rate 2022-10-23 19:12:00 20 /min [facility] Systolic blood 2022-10-11 13:57:52 133 mm[Hg] [facility] pressure Diastolic blood 2022-10-11 13:57:52 72 mm[Hg] [facility] pressure Heart rate 2022-10-11 13:57:52 96 /min [facility] Body temperature 2022-10-11 13:57:52 37.17 Tesha [facility] Oxygen saturation in 2022-10-11 13:57:52 98 /min [facility] Arterial blood by Pulse oximetry Procedures Procedure Date / Time Performing Clinician Source Performed AFB CULTURE 2023-01-12 16:40:00 [facility] FUNGUS CULTURE 2023-01-12 16:40:00 [facility] FUNGUS SMEAR 2023-01-12 16:40:00 [facility] CELL COUNT AND 2023-01-12 16:40:00 [facility] DIFFERENTIAL, BODY FLUID CRYSTAL ANALYSIS 2023-01-12 16:40[facility] [place] [facility]IR[facility] 2023-01-12 16:37[facility] 2023-01-12 15:40:00 [facility] ANAEROBIC CULTURE 2023-01-12 15:40:00 [facility] JOINT FLUID CULTURE 2023-01-12 15:40:00 [facility] CBC WITH PLATELET AND 2023-01-09 16:12:00 Luisa Lincoln [facility] DIFFERENTIAL Kireyian SEDIMENTATION RATE 2023-01-09 16:12:00 [facility] Kireyian C-REACTIVE PROTEIN 2023-01-09 16:12:00 [facility] Kireyian XR HIP 2-3 VIEWS RIGHT 2023-01-01 19:13:42 Garland Thompson [facility] XR HIP 2-3 VIEWS RIGHT 2022-11-22 15:46:22 [facility] WITH PLATELET AND 2022-10-11 10:29:00 Garland Thompson [facility] DIFFERENTIAL BASIC METABOLIC PANEL 2022-10-11 10:29:00 Garland Thompson [facility] ESTIMATED GFR 2022-10-11 10:29:00 [facility] XR HIP 2-3 VIEWS RIGHT 2022-10-10 21:55:[address] [facility] XR HIP 1 VIEW RIGHT 2022-10-10 19:00:00 Garland Thompson [facility] SURGICAL PATHOLOGY 2022-10-10 18:[facility] 2022-10-10 17:30:00 [facility] ENDOTRACHEAL AIRWAY ARTHROPLASTY,HIP,TOTAL,PO 2022-10-10 17:19:00 [facility] STERIOR APPROACH ABO AND RH CONFIRMATION 2022-10-10 14:01:00 [facility] COVID-19 QUALITATIVE 2022-10-05 17:38:00 Brianne Barajas [facility] RT-PCR METHICILLIN-RESISTANT 2022-10-05 17:38:00 [facility] STAPHYLOCOCCUS AUREUS Haroldoeyian (MRSA), ELIAN TYPE AND SCREEN 2022-10-05 17:38:00 [facility] spital Kireyian VITAMIN D 1,25 DIHYDROXY 2022-10-05 17:38:00 [facility] LEVEL, SERUM [facility] C-REACTIVE PROTEIN 2022-10-05 17:38:00 [facility] Kireyian SEDIMENTATION RATE 2022-10-05 17:38:00 Luisa Lincoln [facility] ECG 12-LEAD 2022-10-05 17:21:44 [facility] Care Planned Activity Planned Date Details Comments Source Future Scheduled 2023-07-13 Screening for [facility] Test 11:56:28 malignant neoplasm of colon (procedure) [code = 053278446] Future Scheduled 2023-07-13 Screening for [facility] Test 11:56:28 malignant neoplasm of colon (procedure) [code = 539968574] Future Scheduled 2023-07-13 Screening for [facility] Test 11:56:28 malignant neoplasm of colon (procedure) [code = 155295094] Future Scheduled 2023-07-13 COVID-19 VACCINE (#1) [facility] Test 11:56:28 [code = COVID-19 VACCINE (#1)] Future Scheduled 2023-07-13 Pneumococcal Vaccine: [facility] Test 11:56:28 Pediatrics (0 to 5 Years) and At-Risk Patients (6 to 64 Years) (1 - PCV) [code = Pneumococcal Vaccine: Pediatrics (0 to 5 Years) and At-Risk Patients (6 to 64 Years) (1 - PCV)] Future Scheduled 2023-07-13 Hepatitis C screening [facility] Test 11:56:28 (procedure) [code = 354952252] Future Scheduled 2023-07-13 Screening for [facility] Test 11:56:28 malignant neoplasm of cervix (procedure) [code = 430857777] Future Scheduled 2023-07-13 BREAST CANCER [facility] Test 11:56:28 SCREENING [code = BREAST CANCER SCREENING] Future Scheduled 2023-07-13 Screening for [facility] Test 11:56:28 malignant neoplasm of colon (procedure) [code = 773231611] Future Scheduled 2023-07-13 Screening for [facility] Test 11:56:28 malignant neoplasm of colon (procedure) [code = 105096281] Future Scheduled 2023-07-13 SHINGLES VACCINES (1 Met [facility] Test 11:56:28 of 2) [code = SHINGLES VACCINES (1 of 2)] Future Scheduled 2023-07-13 INFLUENZA VACCINE (#1) [facility] Test 11:56:28 [code = INFLUENZA VACCINE (#1)] Encounters Start End Encounter Admission Attending Care Care Encounter Source Date/Time Date/Time Type Type Clinicians Facility Department ID 2023-04-27 2023-04-27 Orders Ryan, 1.2.840.1 [id number] Methodi 00:00:00 00:00:00 Only Amelia 08396.1.[address] 3.430.2.7 Hospit a .3.614664 l .8 2023-03-01 2023-03-01 Transcribe Victor Hugo 1.2.840.1 [id number] Methodi 00:00:00 00:00:00 Orders Juan 15787.1.[address] [place] 3.430.2.7 Hospit a .3.388250 l .8 2023-01-17 2023-01-17 Office Garland Thompson 1.2.840.1 [id number] Methodi 07:45:00 08:06:52 Visit Kirill 16239.1.[address] 3.430.2.7 Hospit a .3.792694 l .8 2023-01-17 2023-01-17 Outpatient GARLAND THOMPSON [facility] [id number] [place] 00:00:00 00:00:[address] 2023-01-12 2023-01-12 Hospital Garland Thompson 1.2.840.1 [id number] Methodi 09:36:43 23:59:00 Encounter Kirill 81964.1.[address] 3.430.2.7 Hospit a .3.430467 l .8 2023-01-12 2023-01-12 Outpatient GARLAND THOMPSON [facility] 904 [id number] [place] 00:00:00 00:00:[address] 2023-01-12 2023-01-12 Travel 1.2.840.1 1.2.630.848 [id number] Methodi 00:00:00 00:00:[address] 3.430.2.7 0.2.7.3.698 Ho spita .3.343399 084.8 l .8 2023-01-10 2023-01-10 Orders Davis, 1.2.840.1 [id number] Methodi 00:00:00 00:00:00 Only Amelia 18620.1.[address] 3.430.2.7 Hospit a .3.358021 l .8 2023-01-09 2023-01-09 Lab Garland Thompson 1.2.840.1 [id number] Methodi 13:45:00 14:00:[address] 3.430.2.7 Hospit a .3.063307 l .8 2023-01-09 2023-01-09 Office Salazar 1.2.840.1 [id number] Methodi 10:30:00 10:30:00 Visit Luisa 27004.1.[address] Kireyian 3.430.2.7 Hospi ta .3.660465 l .8 2023-01-09 2023-01-09 Outpatient [facility] [id number] [place] 00:00:00 00:00:[address] 2023-01-09 2023-01-09 Outpatient GARLAND THOMPSON [facility] 264 [id number] [place] 00:00:00 00:00:[address] 2023-01-09 2023-01-09 Travel 1.2.840.1 1.2.211.349 [id number] Methodi 00:00:00 00:00:[address] 3.430.2.7 0.2.7.3.698 Ho spita .3.254307 084.8 l .8 2023-01-01 2023-01-01 Office Garland Thompson 1.2.840.1 [id number] Methodi 14:00:00 14:00:00 Visit Kirill 50153.1.[address] 3.430.2.7 Hospit a .3.910247 l .8 2023-01-01 2023-01-01 Outpatient GARLAND THOMPSON [facility] [id number] [place] 00:00:00 00:00:[address] 2023-01-01 2023-01-01 Orders Davis, 1.2.840.1 [id number] Methodi 00:00:00 00:00:00 Only Amelia 37893.1.[address] 3.430.2.7 Hospit a .3.553230 l .8 2023-01-01 2023-01-01 Outpatient GARLAND THOMPSON [facility] 576 [id number] [place] 00:00:00 00:00:[address] 2023-01-01 2023-01-01 Travel 1.2.840.1 1.2.496.417 [id number] [id number] Methodi 00:00:00 00:00:[address] 3.430.2.7 0.2.7.3.698 Ho spita .3.085592 084.8 l .8 2022-12-29 2022-12-29 Travel 1.2.840.1 1.2.452.929 8859 [id number] Methodi 00:00:00 00:00:[address] 3.430.2.7 0.2.7.3.698 Ho spita .3.056229 084.8 l .8 2022-11-22 2022-11-22 Office Garland Thompson 1.2.840.1 [id number] 21 [id number] Methodi 10:15:00 10:38:22 Visit Kirill 57652.1.[address] 3.430.2.7 Hospit a .3.724424 l .8 2022-11-22 2022-11-22 Travel 1.2.840.1 1.2.344.634 2187 [id number] Methodi 00:00:00 00:00:[address] 3.430.2.7 0.2.7.3.698 Ho spita .3.323850 084.8 l .8 2022-11-22 2022-11-22 Outpatient GARLAND THOMPSON [facility] [id number] [place] 00:00:00 00:00:[address] 2022-11-22 2022-11-22 Outpatient GARLAND THOMPSON [facility] [id number] [place] 00:00:00 00:00:[address] 2022-11-21 2022-11-21 Orders Ryan, 1.2.840.1 [id number] Methodi 00:00:00 00:00:00 Only Amelia 67757.1.[address] 3.430.2.7 Hospit a .3.971143 l .8 2022-11-15 2022-11-15 Orders Ryan, 1.2.840.1 [id number] Methodi 00:00:00 00:00:00 Only Amelia 22732.1.[address] 3.430.2.7 Hospit a .3.655759 l .8 2022-10-23 2022-10-23 Office Kahiu, 1.2.840.1 [id number] Methodi 14:15:00 14:15:00 Visit Luisa 70627.1.[address] Haroldoian 3.430.2.7 Hospi ta .3.982749 l .8 2022-10-23 2022-10-23 Outpatient [facility] [id number] [place] 00:00:00 00:00:[address] 2022-10-23 2022-10-23 Orders Garland Thompson 1.2.840.1 [id number] 21 [id number] Methodi 00:00:00 00:00:00 Only Roy 29353.1.[address] 3.430.2.7 Hospit a .3.804845 l .8 2022-10-23 2022-10-23 Travel 1.2.840.1 1.2.047.690 6499 [id number] Methodi 00:00:00 00:00:[address] 3.430.2.7 0.2.7.3.698 Ho spita .3.196951 084.8 l .8 2022-10-13 2022-10-13 Orders Ryan, 1.2.840.1 [id number] Methodi 00:00:00 00:00:00 Only Amelia 47305.1.[address] 3.430.2.7 Hospit a .3.937639 l .8 2022-10-10 2022-10-11 Hospital Ric Thompsony 1.2.840.1 [id number] 2 [id number] Methodi 07:35:00 10:41:00 Encounter Roy 74867.1.[address] 3.430.2.7 Hospit a .3.444416 l .8 2022-10-10 2022-10-11 Outpatient DONNA GARLADN [facility] [id number] [place] 00:00:00 00:00:[address] 2022-10-10 2022-10-10 Anesthesia Renato Castillo 1.2.840.1 [id number] 2 [id number] Methodi 11:19:00 14:05:[address] 3.430.2.7 Hospit a .3.687771 l .8 2022-10-10 2022-10-10 Surgery Garland Thompson 1.2.840.1 [id number] 21 [id number] Methodi 11:05:00 12:55:[address] 3.430.2.7 Hospit a .3.181100 l .8 2022-10-10 2022-10-10 Travel 1.2.840.1 1.2.196.742 5741 [id number] Methodi 00:00:00 00:00:[address] 3.430.2.7 0.2.7.3.698 Ho spita .3.546484 084.8 l .8 2022-10-09 2022-10-09 Telephone Ryan, 1.2.840.1 [id number] Methodi 00:00:00 00:00:[address] 3.430.2.7 Hospit a .3.884323 l .8 2022-10-06 2022-10-06 Orders Ryan, 1.2.840.1 [id number] Methodi 00:00:00 00:00:00 Only Amelia 25929.1.[address] 3.430.2.7 Hospit a .3.425750 l .8 2022-10-05 2022-10-05 Office Salazar, 1.2.840.1 [id number] Methodi 12:30:00 13:06:31 Visit Luisa 02460.1.[address] [place]ireyian 3.430.2.7 Hospi ta .3.618532 l .8 2022-10-05 2022-10-05 Pre-Admiss Garland Thompson 1.2.840.1 [id number] Methodi 11:30:00 11:30:00 ion Kirill 79555.1.[address] Testing 3.430.2.7 Hospit a .3.773197 l .8 2022-10-05 2022-10-05 Outpatient GARLAND THOMSPON [facility] [id number] [place] 00:00:00 00:00:[address] 2022-10-05 2022-10-05 Outpatient [facility] [id number] [place] 00:00:00 00:00:[address] 2022-10-05 2022-10-05 Travel 1.2.840.1 1.2.962.263 5993 [id number] Methodi 00:00:00 00:00:[address] 3.430.2.7 0.2.7.3.698 Ho spita .3.716596 084.8 l .8 2022-09-19 2022-09-19 Prep for Kaur, 1.2.840.1 [id number] Methodi 00:00:00 00:00:00 Surgery Faiza 65182.1.[address] 3.430.2.7 Hospit a .3.543301 l .8 2022-09-15 2022-09-15 Orders Davis, 1.2.840.1 [id number] Methodi 00:00:00 00:00:00 Only Amelia 74429.1.[address] 3.430.2.7 Hospit a .3.163140 l .8 2022-09-14 2022-09-14 Office Salazar, 1.2.840.1 [id number] Methodi 13:00:00 13:15:00 Visit Luisa 00632.1.[address] Stephane 3.430.2.7 Hospi ta .3.569272 l .8 2022-09-14 2022-09-14 Outpatient [facility] [id number] [place] 00:00:00 00:00:[address] 2022-05-12 2022-05-12 Outpatient GARLAND THOMPSON [facility] [id number] [place] 00:00:00 00:00:[address] 2022-05-12 2022-05-12 Outpatient GARLAND THOMPSON [facility] 434 [id number] [place] 00:00:00 00:00:[address] 2022-05-12 2022-05-12 Outpatient GARLAND THOMPSON [facility] 024 [id number] [place] 00:00:00 00:00:[address] Results Test Description Test Time Test Comments Results Result Comments Source Joint fluid culture 2023-01-17 04:08:00 Test Item Value Reference Range Interpretation Comme nts Joint fluid culture No growth after 4 Spe cimen InformationSpecimen isolate (test code = days. Source: Joint FluidSpecimen Site: 1634) Right[id number] 03:35:00 Test Item Value Reference Range Interpretation Comments Gram stain No WBC's or Specimen isolate (test organisms seen. Information Specimen code = 1469) Source: Joint FluidSpecimen S ite: Right, Hip [facility] [id number] 17:43:52 Test Item Value Reference Range Interpretation Comments Case number (test code = [id number]) Surgical pathology See link below for report (test code = PDF Lab Report 2250) Result status (test code This is Final Report = [id number]) for [id number] [facility] [id number] 04:43:39 Test Item Value Reference Range Interpretation Comments Ventricular rate (test 55 code = 253) Atrial rate (test code = 55 255) NH interval (test code = 190 266) QRSD interval (test code 86 = 260) QT interval (test code = 414 264) QTC interval (test code 396 = 265) P axis 1 (test code = 61 267) QRS axis 1 (test code = 50 268) T wave axis (test code = 40 270) EKG impression (test Sinus code = 273) bradycardia-Otherwise normal ECG-No previous ECGs available-Electronica lly Signed By Rai Pompa MD ([id number]) on 10/07/2022 10:43:37 [facility] [Presence] in Respiratory specimen by ELAIN with probe [id number] 22:46:28 Test Item Value Reference Range Interpretation Comments SARS-CoV-2 (COVID-19) RNA Not detected [Presence] in Respiratory specimen by ELIAN with probe detection (test code = 62283-5) Whether patient is employed in a Unknown healthcare setting (test code = 67900-7) Whether the patient has symptoms Unknown related to condition of interest (test code = 13080-2) Whether the patient was Unknown hospitalized for condition of interest (test code = 74716-4) Whether the patient was admitted Unknown to intensive care unit (ICU) for condition of interest (test code = 89473-0) Whether patient resides in a Unknown congregate care setting (test code = 40108-1) status (test code = Unknown 75967-4) Date and time of symptom onset Unknown (test code = 23250-8) [facility]
[2023-08-09 13:15] LABS: Absolute Lymphocytes (CBC) 2.6 K/uL (0.7-4.9); Hematocrit 36.1 % (36.0-45.0); Lymphocytes % 32.7 % (15.3-44.8); MCV 89.1 fL (80-100); Platelets 239 thou/uL (152-406); RBC Red Blood Cell Count 4.05 M/uL (3.86-4.86)
[2023-08-09] MEDS ORDERED: NA CHLORIDE 0.9% 1,000 ML ONE (13:23)
--- NOTE | 2023-08-09 13:23 | RAD REPORT ---
EXAM DESCRIPTION: CT - Ct Stroke Brain Wo Cont - 08/09/2023 1:17 pm CLINICAL HISTORY: STROKE ALERT Headache, drowsiness CVA symptomology COMPARISON: Head Brain Wo Cont dated 12/20/2021; Head angio dated 12/20/2021 TECHNIQUE: All CT scans are performed using dose optimization technique as appropriate and may inclu de automated exposure control or mA/KV adjustment according to patient size. FINDINGS: No intracranial hemorrhage, hydrocephalus or extra-axial fluid collection.Mild frontal atr ophy.No areas of brain edema or evidence of midline shift. The paranasal sinuses and mastoids are clear. The calvarium is intact. IMPRESSION: No acute intracranial abnormality. The findings were discussed with Dr. Laws in ER On 08/09/2023 at 1:19 p.m. by telephone.
[2023-08-09] MEDS ORDERED: FOLIC ACID 5 MG/ML VIAL ONE (13:26)
[2023-08-09 13:35] LABS: ALT/SGPT 21 U/L (13-56); AST/SGOT 15 U/L (15-37); Albumin 3.4 g/dL (3.4-5.0); Alkaline Phosphatase 70 U/L (45-117); BUN Blood Urea Nitrogen 20 mg/dL (7-18); Bicarbonate 29 mEq/L (21-32); Bilirubin Total 0.3 mg/dL (0.2-1.0); Glomerular Filtration Rate 65 ml/min (=/>90); Glucose Level 89 mg/dL (74-106); Magnesium 1.8 mg/dL (1.6-2.4); NT PRO-BNP 470 pg/mL (<125); Potassium 3.2 mEq/L (3.5-5.1); Protein, Total 7.3 g/dL (6.4-8.2); Sodium Level 139 mEq/L (136-145); Troponin High Sensitivity 5.2 pg/mL (<58.9)
[2023-08-09 13:38] LABS: Bilirubin Direct < 0.1 mg/dL (0-0.2); Bilirubin Indirect, Calculated ND mg/dL (0.2-0.8)
--- NOTE | 2023-08-09 13:40 | RAD REPORT ---
EXAM DESCRIPTION: RAD - Chest Single View - 08/09/2023 1:25 pm CLINICAL HISTORY: COUGH Chest pain. COMPARISON: Chest Single View dated 02/22/2022 FINDINGS: Portable technique limits examination quality. The lungs are grossly clear. The heart is normal in size. No displaced fractures. IMPRESSION: No acute intrathoracic process suspected.
--- NOTE | 2023-08-09 13:51 | RAD REPORT ---
EXAM DESCRIPTION: CT - Head angio - 08/09/2023 1:21 pm CLINICAL HISTORY: STROKE ALERT Headache, drowsiness, CVA symptomology COMPARISON: Ct Stroke Brain Wo Cont dated 08/09/2023 TECHNIQUE: CT angiography of the head was performed with MIPs. All CT scans are performed using dose optimization technique as appropriate and may include automated exposure control or mA/KV adjustment according to patient size. FINDINGS: No evidence of large vessel occlusion. No evidence of aneurysm is detected. No flow-limiti ng stenosis or vascular malformation identified. Antegrade flow is seen in the vertebral arteries. The vertebral arteries are codominant. The visualized dural venous sinuses are patent. IMPRESSION: No significant flow abnormality is detected.
--- NOTE | 2023-08-09 13:57 | RAD REPORT ---
EXAM DESCRIPTION: US - Extrem Venous W Compress Agusto - 08/09/2023 1:52 pm CLINICAL HISTORY: PAIN Bilateral leg edema and swelling. COMPARISON: Extrem Venous W Compress Agusto dated 02/22/2022 TECHNIQUE: Real-time sonographic interrogation of the left and right lower extremity deep venous sys tems was performed. FINDINGS: Normal compressibility, flow augmentation, phasic flow and spontaneous flow is identified in both the left and right lower extremity deep venous systems. IMPRESSION: No sonographic evidence of left or right lower extremity deep venous thrombosis.
--- NOTE | 2023-08-09 13:57 | RAD REPORT ---
EXAM DESCRIPTION: CT - Neck Angio - 08/09/2023 1:21 pm CLINICAL HISTORY: HEADACHE Headache, drowsiness, CVA symptomology COMPARISON: No comparisons TECHNIQUE: CT angiography of the neck vessels was performed with MIPs. All CT scans are performed using dose optimization technique as appropriate and may include automated exposure control or mA/KV adjustment according to patient size. FINDINGS: A left aortic arch is identified with normal three vessel configuration of the great vesse ls. No significant flow abnormality is seen of the common carotid bilaterally. Small amount of soft plaque is seen left carotid bulb. No significant carotid stenosis seen bilateral ly. Normal flow is seen within both vertebral arteries. IMPRESSION: No significant flow abnormality of the neck vessels is identified. Small amount soft plaquing noted left carotid bulb. NASCET criteria used. Mild 0-49% stenosis Moderate 50-69% stenosis Severe 70-99% stenosis
[2023-08-09 14:07] LABS: Protime INR 1.01
[2023-08-09 14:33] LABS: Urine Bilirubin NEGATIVE (Negative); Urine Blood Negative (Negative); Urine Clarity Clear (Clear); Urine Color Colorless (Yellow); Urine Glucose NEGATIVE (Negative); Urine Protein NEGATIVE (Negative); Urine Urobilinogen Normal (Normal); Urine pH 5.5 (5.0-7.0)
[2023-08-09 14:34] LABS: Specific Gravity > 1.030 (1.005-1.030)
--- NOTE | 2023-08-09 15:06 | RAD REPORT ---
EXAM DESCRIPTION: MRI - Brain Wo Cont - 08/09/2023 2:57 pm CLINICAL HISTORY: STROKE ALERT Headache, drowsiness, CVA symptomology COMPARISON: Head angio dated 08/09/2023 TECHNIQUE: Multi-sequence, multiplanar MR imaging of the brain was performed without contrast. FINDINGS: No intracranial hemorrhage, hydrocephalus or extra-axial fluid collections.A few small foc i periventricular T2/FLAIR hyperintensity noted. These are nonspecific but probably related to minima l microvascular ischemic changes. No edema or shift of midline structures. No findings to suspect bra in mass. DWI is negative for acute CVA. Midline structures are normally formed. Mastoid air cells and paranasal sinuses are clear. IMPRESSION: Negative for acute CVA or other acute intracranial abnormality.
--- NOTE | 2023-08-09 16:10 | ER ---
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 ld1 Previous history of blood clots. Coronavirus screen: At this time, the client does not indicate any symptoms associated with coronavirus-19. Ebola Screen: No symptoms or risks identified at this time. Initial Sepsis Screen: Does the patient meet any 2 criteria?. Risk Assessment: Do you want to hurt yourself or someone else? Patient reports no desire to harm self or others. Onset of symptoms was August 09, 2023. 12:50 Method Of Arrival: Ambulatory ld1 12:50 Acuity: ROSI 3 ld1 Triage Assessment: 12:50 General: Appears in no apparent distress. comfortable, Behavior is calm, cooperative, ld1 appropriate for age. Pain: Denies pain. EENT: No signs and/or symptoms were reported regarding the EENT system. Neuro: Level of Consciousness is awake, alert, obeys commands, Oriented to person, place, time, situation. Cardiovascular: Capillary refill < 3 seconds Patient's skin is warm and dry. Respiratory: Airway is patent Respiratory effort is even, unlabored. GI: Abdomen is round non-distended. : No signs and/or symptoms were reported regarding the genitourinary system. Derm: No signs and/or symptoms reported regarding the dermatologic system. Musculoskeletal: No signs and/or symptoms reported regarding the musculoskeletal system. Historical: - Allergies: 12:50 No Known Allergies; ld1 - PMHx: 12:50 blood clot in right leg; Chronic pain; Hypertensive disorder; Obesity; ld1 - PSHx: 12:50 gastric sleeve; Cholecystectomy; Total abdominal hysterectomy; ld1 - Immunization history:: Adult Immunizations up to date. - Social history:: Smoking status: Patient denies any tobacco usage or history of. Patient/guardian denies using alcohol. - Family history:: not pertinent. Screenin:19 [facility] ED Fall Risk Assessment (Adult) History of falling in the last 3 months, kc6 including since admission No falls in past 3 months (0 pts) Confusion or Disorientation No (0 pts) Intoxicated or Sedated No (0 pts) Impaired Gait No (0 pts) Mobility Assist Device Used No (0 pt) Altered Elimination No (0 pt) Score/Fall Risk Level 0 - 2 = Low Risk. Abuse screen: Denies threats or abuse. Denies injuries from another. Nutritional screening: No deficits noted. Tuberculosis screening: No symptoms or risk factors identified. Assessment: 13:20 General: Appears in no apparent distress. comfortable, well groomed, Behavior is calm, kc6 cooperative, appropriate for age. Pain: Denies pain. Neuro: Level of Consciousness is awake, alert, obeys commands, Oriented to person, place, time, situation, Appropriate for age Booth Supervisor are equal bilaterally Moves all extremities. Weakness in left leg(s) Gait is steady, Speech is normal, Facial symmetry appears normal, Pupils are PERRLA, Numbness in left leg Reports numbness in left leg weakness in left leg. Cardiovascular: Denies chest pain, Heart tones S1 S2 present Capillary refill < 3 seconds Rhythm is sinus rhythm. Respiratory: Airway is patent Trachea midline Respiratory effort is even, unlabored, Respiratory pattern is regular, symmetrical, Breath sounds are clear bilaterally. Denies shortness of breath. GI: No signs and/or symptoms were reported involving the gastrointestinal system. : No signs and/or symptoms were reported regarding the genitourinary system. EENT: No signs and/or symptoms were reported regarding the EENT system. Derm: No signs and/or symptoms reported regarding the dermatologic system. Skin is intact, is healthy with good turgor, Skin is pink, warm \T\ dry. Musculoskeletal: No signs and/or symptoms reported regarding the musculoskeletal system. Circulation, motion, and sensation intact. Capillary refill < 3 seconds, Range of motion: intact in all extremities. 14:20 Reassessment: Patient appears in no apparent distress at this time. No changes from kc6 previously documented assessment. Patient and/or family updated on plan of care and expected duration. Pain level reassessed. Patient is alert, oriented x 3, equal unlabored respirations, skin warm/dry/pink. 15:20 Reassessment: Patient appears in no apparent distress at this time. No changes from kc6 previously documented assessment. Patient and/or family updated on plan of care and expected duration. Pain level reassessed. Patient is alert, oriented x 3, equal unlabored respirations, skin warm/dry/pink. 16:20 Reassessment: Patient appears in no apparent distress at this time. No changes from kc6 previously documented assessment. Patient and/or family updated on plan of care and expected duration. Pain level reassessed. Patient is alert, oriented x 3, equal unlabored respirations, skin warm/dry/pink. Vital Signs: 12:50 Weight 94.35 kg; Height 5 ft. 11 in. ; Pain 0/10; ld1 13:21 BP 157 / 108; Pulse 66; Resp 14 S; Temp 98.7(O); Pulse Ox 98% on R/A; kc6 13:51 BP 135 / 94; Pulse 60; Resp 18; Pulse Ox 100% on R/A; ph 15:01 BP 155 / 86; Pulse 53; Resp 16 S; Pulse Ox 100% on R/A; kc6 12:50 Body Mass Index 29.01 (94.35 kg, 180.34 cm) ld1 12:50 Pain Scale: Adult ld1 ED Course: 12:46 Patient arrived in ED. ld1 12:47 Tigre Laws MD is Attending Physician. [facility] 12:50 Triage completed. ld1 12:50 Arm band placed on right wrist. ld1 13:08 Jodi Hunt, RN is Primary Nurse. kc6 13:09 Inserted saline lock: 18 gauge in right antecubital area, using aseptic technique. kc6 Blood collected. 13:19 CT Stroke Brain w/o Contrast In Process Unspecified. EDMS 13:20 Patient has correct armband on for positive identification. Placed in gown. Bed in low kc6 position. Call light in reach. Side rails up X 1. Client placed on continuous cardiac and pulse oximetry monitoring. NIBP monitoring applied. 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 13:23 CT Head Angio In Process Unspecified. EDMS 13:23 CT Neck Angio In Process Unspecified. EDMS 13:27 XRAY Chest (1 view) In Process Unspecified. EDMS 13:52 No provider procedures requiring assistance completed. ph 13:54 US Extremity Venous W Compression Agusto In Process Unspecified. EDMS 14:58 Brain Wo Cont In Process Unspecified. EDMS 16:08 Nikhil Olvera MD is Referral Physician. katheryn 16:40 IV discontinued, intact, bleeding controlled, No redness/swelling at site. Pressure kc6 dressing applied. Administered Medications: 13:52 Drug: foLIC Acid IVPB 1 mg IVPB once Route: IVPB; Site: right antecubital; kc6 16:33 Follow up: Response: No adverse reaction; IV Status: Completed infusion kc6 13:52 Drug: NS 0.9% IV 1000 ml IV at 1 bolus Per protocol; 1000 mL bolus Route: IV; Rate: 1 kc6 bolus; Site: right antecubital; 16:33 Follow up: Response: No adverse reaction; IV Status: Completed infusion; IV Intake: kc6 1000ml 16:08 Drug: Potassium PO Effervescent Tablet 25 mEq PO once; dissolve in 4 ounces of water or kc6 juice Route: PO; 16:33 Follow up: Response: No adverse reaction kc6 16:08 Drug: Potassium PO Effervescent Tablet 25 mEq PO once; dissolve in 4 ounces of water or kc6 juice Route: PO; 16:33 Follow up: Response: No adverse reaction kc6 16:08 Drug: Aspirin PO Chewable Tablet 81 mg PO once Route: PO; kc6 16:33 Follow up: Response: No adverse reaction kc6 Medication: 16:40 VIS not applicable for this client. kc6 Intake: 16:33 IV: 1000ml; Total: 1000ml. kc6 Outcome: 16:09 Discharge ordered by . katheryn 16:40 Discharged to home ambulatory, kc6 16:40 Condition: stable 16:40 Discharge instructions given to patient, Instructed on discharge instructions, follow up and referral plans. Demonstrated understanding of instructions, follow-up care, 16:40 Patient left the ED. kc6 Signatures: Dispatcher [employer] Tigre Moore MD MD cha Hall, Patricia, RN RN Danay Fields RN RN ld1 Jodi Hunt RN RN kc6
--- NOTE | 2023-08-09 16:10 | EDPHYS ---
Physician Documentation [facility] Name: Hina Lo Age: 58 yrs Sex: Female : 1965 Arrival Date: 08/09/2023 Time: 12:40 Bed 6 Private MD: ED Physician Tigre Laws HPI: 08/09 16:05 This 58 yrs old Female presents to ER via Ambulatory with complaints of katheryn General Weakness, Numbness. 16:05 The patient's problem is reported as paresthesias, in left lower extremity, weakness, katheryn in the left lower extremity. Onset: The symptoms/episode began/occurred 3 day(s) ago. Duration: The episode is continuous. Context: occurred at an unknown location. The symptoms are alleviated by nothing. The symptoms are aggravated by nothing. Associated signs and symptoms: The patient has no apparent associated signs or symptoms. Severity of symptoms: At their worst the symptoms were mild in the emergency department the symptoms are unchanged. Patient's baseline: Neuro: alert and fully oriented. The patient has not experienced similar symptoms in the past. Historical: - Allergies: 12:50 No Known Allergies; ld1 - PMHx: 12:50 blood clot in right leg; Chronic pain; Hypertensive disorder; Obesity; ld1 - PSHx: 12:50 gastric sleeve; Cholecystectomy; Total abdominal hysterectomy; ld1 - Immunization history:: Adult Immunizations up to date. - Social history:: Smoking status: Patient denies any tobacco usage or history of. Patient/guardian denies using alcohol. - Family history:: not pertinent. ROS: 16:02 Constitutional: Negative for fever, chills, and weight loss, Eyes: Negative for injury, katheryn pain, redness, and discharge, ENT: Negative for injury, pain, and discharge, Neck: Negative for injury, pain, and swelling, Cardiovascular: Negative for chest pain, palpitations, and edema, Respiratory: Negative for shortness of breath, cough, wheezing, and pleuritic chest pain, Abdomen/GI: Negative for abdominal pain, nausea, vomiting, diarrhea, and constipation, Back: Negative for injury and pain, : Negative for injury, bleeding, discharge, and swelling, Skin: Negative for injury, rash, and discoloration, Psych: Negative for depression, anxiety, suicide ideation, homicidal ideation, and hallucinations, Allergy/Immunology: Negative for hives, rash, and allergies, Endocrine: Negative for neck swelling, polydipsia, polyuria, polyphagia, and marked weight changes, Hematologic/Lymphatic: Negative for swollen nodes, abnormal bleeding, and unusual bruising, 16:02 MS/extremity: Positive for pain, paresthesias, of the left leg, bilateral le, hx dvt, on eliquis, Exam: 16:02 Radiologist reports: neg katheryn 16:02 Constitutional: This is a well developed, well nourished patient who is awake, alert, and in no acute distress. Head/Face: Normocephalic, atraumatic. Eyes: Pupils equal round and reactive to light, extra-ocular motions intact. Lids and lashes normal. Conjunctiva and sclera are non-icteric and not injected. Cornea within normal limits. Periorbital areas with no swelling, redness, or edema. ENT: Nares patent. No nasal discharge, no septal abnormalities noted. Tympanic membranes are normal and external auditory canals are clear. Oropharynx with no redness, swelling, or masses, exudates, or evidence of obstruction, uvula midline. Mucous membranes moist. Neck: Trachea midline, no thyromegaly or masses palpated, and no cervical lymphadenopathy. Supple, full range of motion without nuchal rigidity, or vertebral point tenderness. No Meningismus. Chest/axilla: Normal chest wall appearance and motion. Nontender with no deformity. No lesions are appreciated. Cardiovascular: Regular rate and rhythm with a normal S1 and S2. No gallops, murmurs, or rubs. Normal PMI, no JVD. No pulse deficits. Respiratory: Lungs have equal breath sounds bilaterally, clear to auscultation and percussion. No rales, rhonchi or wheezes noted. No increased work of breathing, no retractions or nasal flaring. Abdomen/GI: Soft, non-tender, with normal bowel sounds. No distension or tympany. No guarding or rebound. No evidence of tenderness throughout. Back: No spinal tenderness. No costovertebral tenderness. Full range of motion. Female : Normal external genitalia. Skin: Warm, dry with normal turgor. Normal color with no rashes, no lesions, and no evidence of cellulitis. MS/ Extremity: Pulses equal, no cyanosis. Neurovascular intact. Full, normal range of motion. Neuro: Awake and alert, GCS 15, oriented to person, place, time, and situation. Cranial nerves II-XII grossly intact. Motor strength 5/5 in all extremities. Sensory grossly intact. Cerebellar exam normal. Normal gait. Psych: Awake, alert, with orientation to person, place and time. Behavior, mood, and affect are within normal limits. 16:02 ECG was reviewed by the Attending Physician. Vital Signs: 12:50 Weight 94.35 kg; Height 5 ft. 11 in. ; Pain 0/10; ld1 13:21 BP 157 / 108; Pulse 66; Resp 14 S; Temp 98.7(O); Pulse Ox 98% on R/A; kc6 13:51 BP 135 / 94; Pulse 60; Resp 18; Pulse Ox 100% on R/A; ph 15:01 BP 155 / 86; Pulse 53; Resp 16 S; Pulse Ox 100% on R/A; kc6 12:50 Body Mass Index 29.01 (94.35 kg, 180.34 cm) ld1 12:50 Pain Scale: Adult ld1 MDM: 12:47 Patient medically screened. katheryn 08/09 13:00 Order name: Basic Metabolic Panel; Complete Time: 15:53 katheryn 08/09 13:00 Order name: CBC with Diff; Complete Time: 15:53 katheryn 08/09 13:00 Order name: LFT's; Complete Time: 15:53 katheryn 08/09 13:00 Order name: Magnesium; Complete Time: 15:53 katheryn 08/09 13:00 Order name: NT PRO-BNP; Complete Time: 15:53 katheryn 08/09 13:00 Order name: PT-INR; Complete Time: 15:53 katheryn 08/09 13:00 Order name: Troponin HS; Complete Time: 15:53 katheryn 08/09 13:00 Order name: Urinalysis w/ reflexes; Complete Time: 15:53 katheryn 08/09 13:02 Order name: Lipase; Complete Time: 15:53 katheryn 08/09 14:27 Order name: CREATININE WHOLE BLOOD; Complete Time: 15:53 EDMS 08/09 13:00 Order name: XRAY Chest (1 view); Complete Time: 15:53 katheryn 08/09 13:02 Order name: US Extremity Venous W Compression Augsto; Complete Time: 15:53 katheryn 08/09 13:02 Order name: CT Stroke Brain w/o Contrast; Complete Time: 15:53 katheryn 08/09 13:02 Order name: CT Head Angio; Complete Time: 15:53 katheryn 08/09 13:02 Order name: CT Neck Angio; Complete Time: 15:53 katheryn 08/09 14:58 Order name: Brain Wo Cont; Complete Time: 15:53 EDMS 08/09 13:00 Order name: EKG; Complete Time: 13:01 katheryn 08/09 13:00 Order name: Cardiac monitoring; Complete Time: 13:08 katheryn 08/09 13:00 Order name: EKG - Nurse/Tech; Complete Time: 13:08 katheryn 08/09 13:00 Order name: IV Saline Lock; Complete Time: 13:08 katheryn 08/09 13:00 Order name: Labs collected and sent; Complete Time: 13:08 katheryn 08/09 13:00 Order name: O2 Per Protocol; Complete Time: 13:08 katheryn 08/09 13:00 Order name: O2 Sat Monitoring; Complete Time: 13:09 katheryn 08/09 13:20 Order name: Labs - recollect needed: recollect blue top please; Complete Time: 13:52 em1 EC:02 Rate is 65 beats/min. Rhythm is regular. QRS [place] is Normal. LA interval is normal. QRS katheryn interval is normal. QT interval is normal. No Q waves. T waves are Normal. No ST changes noted. Clinical impression: NSR w/ Non-specific ST/T Changes and No evidence of ischemia. Interpreted by me. Reviewed by me. Administered Medications: 13:52 Drug: foLIC Acid IVPB 1 mg IVPB once Route: IVPB; Site: right antecubital; [facility] 16:33 Follow up: Response: No adverse reaction; IV Status: Completed infusion kc6 13:52 Drug: NS 0.9% IV 1000 ml IV at 1 bolus Per protocol; 1000 mL bolus Route: IV; Rate: 1 kc6 bolus; Site: right antecubital; 16:33 Follow up: Response: No adverse reaction; IV Status: Completed infusion; IV Intake: kc6 1000ml 16:08 Drug: Potassium PO Effervescent Tablet 25 mEq PO once; dissolve in 4 ounces of water or kc6 juice Route: PO; 16:33 Follow up: Response: No adverse reaction kc6 16:08 Drug: Potassium PO Effervescent Tablet 25 mEq PO once; dissolve in 4 ounces of water or kc6 juice Route: PO; 16:33 Follow up: Response: No adverse reaction kc6 16:08 Drug: Aspirin PO Chewable Tablet 81 mg PO once Route: PO; kc6 16:33 Follow up: Response: No adverse reaction kc6 Disposition Summary: 08/09/23 16:09 Discharge Ordered Notes: Location: Home katheryn Problem: new katheryn Symptoms: have improved katheryn Condition: Stable katheryn Diagnosis - Pain in right leg katheryn - Pain in left leg katheryn - Paresthesia of skin katheryn - Hypokalemia katheryn - Weakness katheryn - 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 katheryn Followup: katheryn - With: Private Physician - When: 2 - 3 days - Reason: Recheck today's complaints, Continuance of care, Re-evaluation by your physician Followup: katheryn - With: Nikhil Olvera MD - When: 2 - 3 days - Reason: Recheck today's complaints, Re-evaluation by your physician Discharge Instructions: - Discharge Summary Sheet katheryn - Potassium Content of Foods katheryn - Paresthesia katheryn - Weakness katheryn - Weakness, [id number] katheryn - Hypokalemia katheryn Forms: - Medication Reconciliation Form katheryn - Thank You Letter katheryn - Antibiotic Education katheryn - Prescription Opioid Use katheryn - Patient Portal Instructions katheryn - Leadership Thank You Letter katheryn Signatures: Dispatcher [employer] Tigre Moore MD MD cha Martinez, Eric em1 Danay Fields, RN RN ld1 Jodi Hunt RN RN kc6 Corrections: (The following items were deleted from the chart) 14:58 13:03 MR STROKE PROTOCOL+MRI.RAD.BRZ ordered. JOSE GARCIA
[2023-08-09] MEDS ORDERED: ASPIRIN 81 MG CHEWABLE TABLET ONE (16:17)
[2023-08-09] MEDS ORDERED: POTASSIUM 25 MEQ EFFERV TAB ONE (16:17)
[2023-08-09 18:43] VITALS: TEMP 98.7
[2023-08-09 18:45] VITALS: O2SAT 100
[2023-08-09 18:46] VITALS: BP 155/86
== END 2023-08-09 16:40 | disposition home or self-care (01) ==
LOC: ER 12:40
DX: R20.2 Paresthesia of skin (principal); M79.605 Pain in left leg; M79.604 Pain in right leg; E87.6 Hypokalemia; R53.1 Weakness; I10 Essential (primary) hypertension; Z86.718 Personal history of other venous thrombosis and embolism; Z79.01 Long term (current) use of anticoagulants
CPT/HCPCS: 96365; 93005; 85025; 80048; 36415; 83735; 85610; 82565; 80076; 81003; 84484; 83690; 83880; 70496; 70498; 70450; 71045; 93970; 70551; 99285; 96366; J7030